=== PATIENT | male | born 1960 | race Caucasian/White ===

== ENCOUNTER 2016-06-02 07:56 | Observation (INO) | payer OTHER ==
[2016-05-29 17:45] LABS: BASOPHILS 0.8 %; BASOPHILS ABSOLUTE 0.05 10/3/uL (0.0-0.16); EOSINOPHILS 3.2 %; IMMATURE GRANULOCYTES 0.5 %; IMMATURE GRANULOCYTES ABSOLUTE 0.03 10/3/uL (0.0-0.11); LYMPHOCYTES 21.2 %; LYMPHOCYTES ABSOLUTE 1.34 10/3/uL (0.67-4.30); MEAN CORPUSCULAR HEMOGLOB 29.9 pg (26.0-34.0); MEAN PLATELET VOLUME 11.2 fL (9.2-13.0); MONOCYTES 5.9 %; MONOCYTES ABSOLUTE 0.37 10/3/uL (0.21-1.20); NEUTROPHILS 68.4 %; NEUTROPHILS ABSOLUTE 4.33 10/3/uL (2.02-8.40); PLATELET COUNT 203 10/3/uL (150-400); RBC DISTRIBUTION WIDTH 15.7 % (12.0-16.0); WHITE BLOOD CELLS 6.3 10/3/uL (4.5-10.5)
[2016-05-29 17:49] LABS: HEMATOCRIT 35.5 % (40.0-51.0); HEMOGLOBIN 11.4 g/dL (13.6-17.8); MANUAL DIFF NO %; MEAN CORPUS HGB CONC 32.1 g/dL (32.0-36.0); MEAN CORPUSCULAR VOLUME 93.2 fL (80-100); RED CELL COUNT 3.81 10/6/uL (4.7-6.1)
[2016-05-29 17:52] LABS: INTERNATIONAL NORMAL RATI 1.1 UNITS (-)
[2016-05-29 17:57] LABS: PROTIME (NOT ORD) 13.7 SEC (12.0-14.5)
[2016-05-29 18:03] LABS: CALCIUM, SERUM 7.7 MG/DL (8.5-10.4); CHLORIDE, SERUM 101 MMOL/L (96-112); CO2 (CARBON DIOXIDE) 28 MMOL/L (24-34); POTASSIUM, SERUM 4.1 MMOL/L (3.5-5.3); SODIUM, SERUM 142 MMOL/L (135-148)
[2016-05-29 18:10] LABS: BUN (BLOOD UREA NITROGEN) 19 MG/DL (6-23); CREATININE 3.62 MG/DL (0.70-1.30); GFR AFRICAN AMERICAN 21 ML/MIN (>=60); GFR NON AFRICAN AMERICAN 18 ML/MIN (>=60); GLUCOSE, SERUM 360 MG/DL (60-99)
[2016-05-29 18:33] LABS: ASCORBIC ACID (UR NOT ORDER) 40 (NEG); BILIRUBIN, URINE NEGATIVE (NEG); KETONE, URINE NEGATIVE (NEG); LEUKOCYTE ESTERASE(NOT OR NEG (NEG); WBC (NOT ORDERED) (RFLEX) 3 (0-5)
--- NOTE | ~2016-06-02 | OP ---
Record Of Operation [facility] [address] [place]. [address] NAME: DARWIN MORALEZ : 62 STATUS : ADM IN PAT#: [id number] AGE: 56 ADM/REG DATE : 06/02/16 MR#: [id number] REPORT SERV DATE: 06/02/16 DICTATED BY: LISBET RUSH DATE: 06/02/16 REPORT STATUS : Draft TRANSCRIBED BY: MODL DATE: 06/02/16 DATE OF PROCEDURE: 06/02/2016 PREOPERATIVE DIAGNOSES: 1. Superficial sternal wound dehiscence, status post pericardial window. 2. Status post recent coronary artery bypass grafting. 3. Diabetes mellitus, type 2, insulin dependent. 4. Obesity. 5. Chronic systolic congestive heart failure, ejection fraction 20%. POSTOPERATIVE DIAGNOSES: 1. Superficial sternal wound dehiscence, status post pericardial window. 2. Status post recent coronary artery bypass grafting. 3. Diabetes mellitus, type 2, insulin dependent. 4. Obesity. 5. Chronic systolic congestive heart failure, ejection fraction 20%. PROCEDURE PERFORMED: 1. Debridement of sternal wound, superficial. 2. Replacement of VAC pack. SURGEON: Lisbet Rush M.D. [employer]: Geo Isidro and Kalli Sweeney. ANESTHESIA: General. INDICATION: Mr. Moralez is a 56-year-old gentleman, who had an urgent coronary artery bypass grafting, who developed pericardial effusion and had to have a pericardial window performed last week. He developed a superficial breakdown in the sternal wound and is brought back today for evaluation and VAC pack change and possible closure. We discussed possible procedure with the patient's . 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 We discussed possible closure with the patient and his and they wished to proceed. FINDINGS: 1. There is a superficial wound dehiscence in the area of the pericardial window incision. The tissue has necrotic fat contamination. Cultures were sent. I felt the wound could not be closed in the face of probable contamination of deep and necrotic tissue. 2. VAC pack was replaced. DESCRIPTION OF PROCEDURE: The patient was brought to the operating suite where general anesthesia was induced. The airway was secured with an endotracheal tube. Lines were secured by Anesthesia. The VAC dressing was removed, and patient's chest and arm prepped with Hibiclens and ChloraPrep and draped with Ioban sterile sheets. Record Of Operation [facility] [address] [place]. [address] NAME: DARWIN MORALEZ : 62 STATUS : ADM IN PAT#: [id number] AGE: 56 ADM/REG DATE : 06/02/16 MR#: [id number] REPORT SERV DATE: 06/02/16 DICTATED BY: LISBET RSUH DATE: 06/02/16 REPORT STATUS : Draft TRANSCRIBED BY: AILYN DATE: 06/02/16 The subcutaneous tissues were examined. There was purulent tissue in this space. This was debrided. Fat necrosis extended cranially and old incision was opened up for several centimeters toward the head to gain better exposure and debridement. The old wound was debrided. Then, the area in question was in the superficial subcutaneous space and did not expand down below the level of the fascia. This looked viable and pink. Once debridement was completed, hemostasis was obtained. The wound was irrigated copiously with antibiotic solution and a VAC dressing reapplied. The patient tolerated the procedure well. There were no complications. Sponge and needle counts were correct. DISPOSITION: The patient was awakened, extubated, and taken to recovery room in stable condition. IVAN/AILYN Lisbet Rush M.D. / [id number] CC: Juvencio Patterson MD
[~2016-06-02 07:56] MED LIST: ASAB PO; AVAPRO300 MG PO; B12250T PO; BACDS PO; COREG3 PO; COZ25 PO; COZ50 PO; COZAAR100 MG PO; DESITIN40 % TOP; DORZOLAMIDE2 % OP; GLUCOTRO10 PO; HUMALOGPEN SC; INSNOVR SC; INSULIN DEGLUDEC SQ; INSULIN SC; L20 PO; L40 PO; LANTUS SC; LANTUSCART SC; LIPITOR40 PO; LOP25 PO; NEO-OINT15 TOP; NORV5 PO; NOVOLOG SC; NOVOLOGMIX SC; NOVOPEN SC; PLAVIX; PLAVIX PO; PRAVACHOL40 MG PO; PRIN10 PO; RENA-VITE PO; RIFAMPIN PO; SEPTRA DS1 TAB PO; TIMOPTIC0.25 % OP; TOUJEO SC; VASOTEC20 MG PO; VICODINTAB PO; VITAMIN D31000 UNIT PO; VITC500 PO; [UNRECOGNIZED DRUG - OTHER] TOP
[2016-06-02 08:48] LABS: CALCIUM, SERUM 8.4 MG/DL (8.5-10.4); CHLORIDE, SERUM 104 MMOL/L (96-112); CO2 (CARBON DIOXIDE) 25 MMOL/L (24-34); POTASSIUM, SERUM 4.4 MMOL/L (3.5-5.3); SODIUM, SERUM 142 MMOL/L (135-148)
[2016-06-02 08:49] LABS: BUN (BLOOD UREA NITROGEN) 35 MG/DL (6-23); CREATININE 5.22 MG/DL (0.70-1.30); GFR AFRICAN AMERICAN 13 ML/MIN (>=60); GFR NON AFRICAN AMERICAN 11 ML/MIN (>=60); GLUCOSE, SERUM 126 MG/DL (60-99)
[2016-06-03 05:56] LABS: BASOPHILS 0.3 %; BASOPHILS ABSOLUTE 0.02 10/3/uL (0.0-0.16); EOSINOPHILS 0 %; HEMATOCRIT 33.7 % (40.0-51.0); HEMOGLOBIN 10.6 g/dL (13.6-17.8); IMMATURE GRANULOCYTES 0.4 %; IMMATURE GRANULOCYTES ABSOLUTE 0.03 10/3/uL (0.0-0.11); LYMPHOCYTES 10.9 %; LYMPHOCYTES ABSOLUTE 0.81 10/3/uL (0.67-4.30); MEAN CORPUS HGB CONC 31.5 g/dL (32.0-36.0); MEAN CORPUSCULAR HEMOGLOB 29.5 pg (26.0-34.0); MEAN CORPUSCULAR VOLUME 93.9 fL (80-100); MEAN PLATELET VOLUME 11.5 fL (9.2-13.0); MONOCYTES 3.5 %; MONOCYTES ABSOLUTE 0.26 10/3/uL (0.21-1.20); NEUTROPHILS 84.9 %; NEUTROPHILS ABSOLUTE 6.31 10/3/uL (2.02-8.40); PLATELET COUNT 157 10/3/uL (150-400); RBC DISTRIBUTION WIDTH 15.6 % (12.0-16.0); RED CELL COUNT 3.59 10/6/uL (4.7-6.1); WHITE BLOOD CELLS 7.4 10/3/uL (4.5-10.5)
[2016-06-03 05:57] LABS: MANUAL DIFF NO %
[2016-06-03 06:16] LABS: ALBUMIN 3.1 G/DL (3.5-5.0); CHLORIDE, SERUM 105 MMOL/L (96-112); CO2 (CARBON DIOXIDE) 24 MMOL/L (24-34); PHOSPHORUS, SERUM 6.4 MG/DL (2.5-4.5); POTASSIUM, SERUM 4.9 MMOL/L (3.5-5.3); SODIUM, SERUM 140 MMOL/L (135-148)
[2016-06-03 06:17] LABS: BUN (BLOOD UREA NITROGEN) 45 MG/DL (6-23); CREATININE 5.97 MG/DL (0.70-1.30); GFR AFRICAN AMERICAN 11 ML/MIN (>=60); GFR NON AFRICAN AMERICAN 10 ML/MIN (>=60); GLUCOSE, SERUM 166 MG/DL (60-99)
[2016-06-03] MEDS ORDERED: OXYIR5 MG PO (13:16)
[2016-06-30] MEDS ORDERED: COREG3 PO (14:54)
[2016-06-30] MEDS ORDERED: ZYVOXPO PO (14:57)
== END 2016-06-03 17:20 | disposition home or self-care (01) ==
LOC: SDC/OF 07:56 → PACU 11:24 → 5NO 13:25
PROVIDERS: Internal Medicine Nephrology; Nurse Practitioner Family; Thoracic Surgery (Cardiothoracic Vascular Surgery)
PROC: 0HB5XZZ Excision of Chest Skin, External Approach (ICD-10-PCS; principal; 2016-06-02 09:45)
PROC: 0JB60ZZ Excision of Chest Subcutaneous Tissue and Fascia, Open Approach (ICD-10-PCS; 2016-06-02 09:45)
DX: T81.31XA Disruption of external operation (surgical) wound, not elsewhere classified, initial encounter (principal); I13.2 Hypertensive heart and chronic kidney disease with heart failure and with stage 5 chronic kidney disease, or end stage renal disease; N18.5 Chronic kidney disease, stage 5; E11.22 Type 2 diabetes mellitus with diabetic chronic kidney disease; I50.22 Chronic systolic (congestive) heart failure; Z95.1 Presence of aortocoronary bypass graft; E11.610 Type 2 diabetes mellitus with diabetic neuropathic arthropathy; E11.319 Type 2 diabetes mellitus with unspecified diabetic retinopathy without macular edema; E11.40 Type 2 diabetes mellitus with diabetic neuropathy, unspecified; E66.9 Obesity, unspecified; E78.5 Hyperlipidemia, unspecified; I25.5 Ischemic cardiomyopathy; Z86.14 Personal history of Methicillin resistant Staphylococcus aureus infection; D64.9 Anemia, unspecified; E11.21 Type 2 diabetes mellitus with diabetic nephropathy; Z79.82 Long term (current) use of aspirin; Z79.02 Long term (current) use of antithrombotics/antiplatelets; Z79.4 Long term (current) use of insulin; Z79.899 Other long term (current) drug therapy; Z90.49 Acquired absence of other specified parts of digestive tract; Z99.2 Dependence on renal dialysis; Z91.040 Latex allergy status; Z98.890 Other specified postprocedural states
CPT/HCPCS: 36415; 71020; 80048; 80069; 81001; 82962; 83735; 85025; 85610; 86850; 86900; 86901; 86920; 87015; 87070; 87075; 87077; 87102; 87116; 87186; 87205; 93005; A9270-GY; G0257; G0378; J0690; J2250; J2370; J2405; J2795; J3010

== ENCOUNTER 2016-07-07 07:41 | Day surgery (SDC) | payer OTHER ==
[2016-07-01 14:33] LABS: BASOPHILS 0.5 %; BASOPHILS ABSOLUTE 0.03 10/3/uL (0.0-0.16); EOSINOPHILS 3.5 %; EOSINOPHILS ABSOLUTE 0.22 10/3/uL (0.0-0.53); HEMATOCRIT 36.8 % (40.0-51.0); HEMOGLOBIN 12.2 g/dL (13.6-17.8); IMMATURE GRANULOCYTES ABSOLUTE 0.06 10/3/uL (0.0-0.11); LYMPHOCYTES 22.9 %; LYMPHOCYTES ABSOLUTE 1.44 10/3/uL (0.67-4.30); MEAN CORPUSCULAR HEMOGLOB 30.7 pg (26.0-34.0); MEAN CORPUSCULAR VOLUME 92.5 fL (80-100); MEAN PLATELET VOLUME 10.9 fL (9.2-13.0); MONOCYTES 9.5 %; NEUTROPHILS 62.6 %; NEUTROPHILS ABSOLUTE 3.95 10/3/uL (2.02-8.40); PLATELET COUNT 171 10/3/uL (150-400); RBC DISTRIBUTION WIDTH 15.9 % (12.0-16.0); RED CELL COUNT 3.98 10/6/uL (4.7-6.1); WHITE BLOOD CELLS 6.3 10/3/uL (4.5-10.5)
[2016-07-01 14:35] LABS: MANUAL DIFF NO %; MEAN CORPUS HGB CONC 33.2 g/dL (32.0-36.0)
[2016-07-01 14:38] LABS: INTERNATIONAL NORMAL RATI 1.1 UNITS (-); PROTIME (NOT ORD) 13.8 SEC (12.0-14.5)
[2016-07-01 14:44] LABS: BUN (BLOOD UREA NITROGEN) 17 MG/DL (6-23); CALCIUM, SERUM 8.4 MG/DL (8.5-10.4); CHLORIDE, SERUM 97 MMOL/L (96-112); CO2 (CARBON DIOXIDE) 30 MMOL/L (24-34); CREATININE 3.23 MG/DL (0.70-1.30); GFR AFRICAN AMERICAN 24 ML/MIN (>=60); GFR NON AFRICAN AMERICAN 20 ML/MIN (>=60); GLUCOSE, SERUM 207 MG/DL (60-99); SODIUM, SERUM 140 MMOL/L (135-148)
[2016-07-01 14:46] LABS: ASCORBIC ACID (UR NOT ORDER) 40 (NEG); BILIRUBIN, URINE NEGATIVE (NEG); KETONE, URINE NEGATIVE (NEG); LEUKOCYTE ESTERASE(NOT OR SMALL (NEG); WBC (NOT ORDERED) (RFLEX) 19 (0-5)
--- NOTE | ~2016-07-07 | OP ---
Record Of Operation [facility] [address] [place]. [address] NAME: DARWIN SCHRADER : 62 STATUS : ADM IN PAT#: [id number] AGE: 56 ADM/REG DATE : 07/07/16 MR#: [id number] REPORT SERV DATE: 07/07/16 DICTATED BY: LISBET RUSH DATE: 07/07/16 REPORT STATUS : Draft TRANSCRIBED BY: MODL DATE: 07/07/16 DATE OF PROCEDURE: 07/07/2016 This is a 56-year-old gentleman with insulin-dependent diabetes mellitus, ischemic cardiomyopathy, chronic kidney disease, stage 4 to 5, history of MRSA with Charcot's disease to the foot, status post amputation, who had coronary artery bypass grafting on March 17. Postoperatively, he has had a chronically draining inferior aspect of his sternal incision that broke down. He was taken back to the operating room for debridement initially had a closure of this on 06/02/2016, that subsequently needed debridement and VAC packing. He has been managed with VAC packing since that time and we saw him in the office last week and felt that he is probably reasonable for closure at this time. We discussed possible closure with the patient and his and after discussing the operation, its indications, and risks, they wished to proceed. FINDINGS AT OPERATION: He does have granulation tissue in the wound that does bleed readily, but not profusely. I see no areas of purulence and no foreign bodies were needed to be removed at this time. No cultures were obtained. DESCRIPTION OF PROCEDURE: The patient was brought to the operating suite, he was laid in the supine position. General anesthesia was induced, airway was secured with an LMA. Lines were secured by Anesthesia. The patient's chest and abdomen were prepped with Hibiclens and ChloraPrep and draped with Ioban and sterile sheets. The sternal wound was inspected. It was dry, there was good granulation tissue along the edges, and no evidence of purulence. The wound was lightly debrided of any necrotic fat that was seen. Hemostasis was obtained, and the wound was irrigated with 3 L of saline and Ancef solution with the pulse lavage. Then, the wound was closed in a simple mattress fashion using a nylon suture. This was done because of concern about poor tissue healing. On the surface of the skin a Prevena dressing VAC system was applied. The patient tolerated the procedure well. There were no complications. Sponge and needle counts were correct. DISPOSITION: He was extubated and taken to recovery room in stable condition. IVAN/AILYN Lisbet Rush M.D. / [id number] CC: Lisbet Rush M.D. Record Of [address] [address] NAME: DARWIN SCHRADER : 62 STATUS : ADM IN [facility]#: [id number] AGE: 56 ADM/REG DATE : 07/07/16 MR#: [id number] REPORT SERV DATE: 07/07/16 DICTATED BY: LISBET RUSH DATE: 07/07/16 REPORT STATUS : Draft TRANSCRIBED BY: AILYN DATE: 07/07/16 Donald Bernard MD
[~2016-07-07 07:41] MED LIST changes: +OXYIR5 MG PO; +ZYVOXPO PO
[2016-07-07 08:13] LABS: BUN (BLOOD UREA NITROGEN) 31 MG/DL (6-23); CALCIUM, SERUM 8.3 MG/DL (8.5-10.4); CHLORIDE, SERUM 101 MMOL/L (96-112); CO2 (CARBON DIOXIDE) 31 MMOL/L (24-34); GFR AFRICAN AMERICAN 13 ML/MIN (>=60); GFR NON AFRICAN AMERICAN 11 ML/MIN (>=60); GLUCOSE, SERUM 118 MG/DL (60-99); POTASSIUM, SERUM 4.7 MMOL/L (3.5-5.3); SODIUM, SERUM 142 MMOL/L (135-148)
== END 2016-07-07 14:00 | disposition home or self-care (01) ==
LOC: SDC 07:41
PROVIDERS: Thoracic Surgery (Cardiothoracic Vascular Surgery)
PROC: 0HQ5XZZ Repair Chest Skin, External Approach (ICD-10-PCS; principal; 2016-07-07 09:15)
DX: T81.89XA Other complications of procedures, not elsewhere classified, initial encounter (principal); E11.51 Type 2 diabetes mellitus with diabetic peripheral angiopathy without gangrene; E11.22 Type 2 diabetes mellitus with diabetic chronic kidney disease; E11.40 Type 2 diabetes mellitus with diabetic neuropathy, unspecified; E11.319 Type 2 diabetes mellitus with unspecified diabetic retinopathy without macular edema; E78.00 Pure hypercholesterolemia, unspecified; I13.2 Hypertensive heart and chronic kidney disease with heart failure and with stage 5 chronic kidney disease, or end stage renal disease; N18.5 Chronic kidney disease, stage 5; I50.9 Heart failure, unspecified; I25.10 Atherosclerotic heart disease of native coronary artery without angina pectoris; Z91.040 Latex allergy status; Z79.82 Long term (current) use of aspirin; Z79.899 Other long term (current) drug therapy; Z79.4 Long term (current) use of insulin; Z79.891 Long term (current) use of opiate analgesic; Z90.49 Acquired absence of other specified parts of digestive tract; Z98.890 Other specified postprocedural states
CPT/HCPCS: 36415; 71020; 80048; 81001; 82962; 85025; 85610; 86850; 86900; 86901; 86920; 87077; 87086; 87186; 93005; A9270-GY; J0690; J2250; J2370; J2795; J3010; J3370